=== PATIENT | male | born 1970 | race Caucasian/White ===

== ENCOUNTER 2025-01-20 16:25 | Emergency (ER) | payer BC ==
[~2025-01-20] VITALS: Ht 175.3 cm; Wt 87.3 kg
[2025-01-20 16:55] VITALS: BP 128/81; PULSE 79; RESP 16; O2SAT 95
[2025-01-20] MEDS: LIDOcaine 1% 30ml preserv. free vial IJ STA (18:56)
[2025-01-20] MEDS: TETanus/Pertussis (Acell)/Diphther VAC/PF (Tdap-Adult) 0.5ml syringe IMVAC ONE (18:56)
--- NOTE | 2025-01-20 19:29 | Physician Documentation ---
History of Present Illness ~ Chief Complaint: Laceration Stated Complaint: HAND LAC Time Seen by MD: 18:23 HPI Patient is a 54-year-old male that presents to the emergency department for evaluation of a laceration sustained while working with a saw to his left hand on the dorsal aspect and to the 1st digit on the left hand. Patient reports that he does not feel there is any foreign bodies left in the wound and is declining an x-ray at this time. Medication Reconciliation Allergies: Coded Allergies: No Known Allergies (Unverified , 01/20/25) Review of Systems ROS As stated above in the HPI, otherwise all systems are reviewed and negative. Physical Exam Vital Signs: Temperature: 97.9, Source: Temporal, Heart Rate: 79, Respiratory Rate: 16, BP: 128/81, Pulse Oximetry: 95, Weight: 87.300 Oxygen Flow Rate: 0 Physical Exam VITALS: Reviewed and as above. GENERAL: Alert, no apparent distress. HEENT: Normocephalic, atraumatic, PERRL, EOMI, dry mucosa, no erythema RESPIRATORY: Lungs clear, normal breath sounds, no respiratory distress. CHEST: No accessory muscle use, no retractions CV: Regular rate, rhythm, no edema, no murmur, No: JVD GI: Soft, non-tender, bowels sounds present, no rebound, guarding, or rigidity BACK: No CVA tenderness, or swelling MUSCULOSKELETAL No deformities, edema to the dorsal aspect of the left hand 1st digit on the left hand, laceration noted. SKIN: Warm and dry, laceration edema noted to the dorsal aspect of the left hand in the 1st digit of the left hand. NEURO: Oriented x4, No motor or sensory deficit PSYCH: Normal mood and affect, no agitation Progress Results/Orders Results/Orders Completed Orders - KENIA BERNARD [employer] Lidocaine 1% 30ml Vial (Xylocaine 1% Via (01/20/25 18:26) Tetanus/Pertuss/Diph Acell/Pf (Boostrix (01/20/25 18:30) Medications Received in ER Medications (Trade) Dose Ordered Sig/August Route PRN Reason Start Time Stop Time Status Last Admin Dose Admin (Boostrix vaccine syringe) 0.5 ml ONCE ONCE IMVAC 01/20/25 18:30 01/20/25 18:31 DC 01/20/25 18:56 0.5 ML Vital Signs 01/20/25 16:55 Temp 97.9 Pulse 79 Resp 16 B/P (MAP) 128/81 Pulse Ox 95 O2 Flow Rate 0 Medical Decision Making Findings Wound inspected under direct bright light with good visualization. Area with linear laceration across soft tissue through adipose without exposure of muscle belly or tendon. No overt foreign body. Area hemostatic. Neurovascular exam congruent with above. Area extensively irrigated with sterile normal saline under pressure. Laceration repaired in simple fashion as below (please see procedure note for further details). Patient tolerated procedure well and neurovascular exam intact and unchanged post repair with intact distal pulses and cap refill_. Cautious return precautions discussed w/ full understanding. Wound care discussed. Prompt follow up with primary care physician discussed and return for suture removal in 10 days. Antibiotc prescribed. Departure Disposition: HOME / SELF CARE / HOMELESS Impression: Primary Impression: Laceration Discharge Instructions: Laceration Care, Adult, [id number] Additional Instructions: Wound inspected under direct bright light with good visualization. Area with linear laceration across soft tissue through adipose without exposure of muscle belly or tendon. No overt foreign body. Area hemostatic. Neurovascular exam congruent with above. Area extensively irrigated with sterile normal saline under pressure. Laceration repaired in simple fashion as below (please see procedure note for further details). Patient tolerated procedure well and neurovascular exam intact and unchanged post repair with intact distal pulses and cap refill_. Cautious return precautions discussed w/ full understanding. Wound care discussed. Prompt follow up with primary care physician discussed and return for suture removal in 10 days. Probiotics prescribed. Patient will follow up with his primary care provider for suture removal. Patient will return to the emergency department if he has any worsening of his current symptoms or any additional concerning symptoms i.e. fevers chills redness sw elling increased pain or any additional concerning symptoms. Referrals: NO PRIMARY CARE PROVIDER (PCP) Prescriptions Cephalexin*Monohydrate* (Keflex*) 500 Mg Capsule 1 CAP PO QID for 7 Days, #28 CAP Prov: KENIA BERNARD 01/20/25 Education Educated: Patient Educated regarding: diagnosis, treatment, need for follow up Signature Scribe Signature: A Attestation: Scribed for Kenia Bernard by WILLAM Finn . 01/20/25 19:30 KENIA BERNARD Jan 20, 2025 19:29
[2025-01-20] MEDS ORDERED: CEPH-585 PO (19:31)
[2025-01-20 20:27] VITALS: TEMP 97.9
[2025-01-20] MEDS ORDERED: LIDOcaine 1% 30ml preserv. free vial IJ STA (20:30)
== END 2025-01-20 20:31 | disposition home or self-care (01) ==
LOC: ER 16:26
DX: S61.211A Laceration without foreign body of left index finger without damage to nail, initial encounter (principal); Z23 Encounter for immunization; X58.XXXA Exposure to other specified factors, initial encounter; Y93.89 Activity, other specified; Y92.89 Other specified places as the place of occurrence of the external cause; Y99.8 Other external cause status
CPT/HCPCS: 12002; 90471; 90715; 99283; J7030; 12001; A6258; A6449